=== PATIENT | female | born 1945 | race Caucasian/White ===

== ENCOUNTER → 2016-05-04 | Outpatient (CLI) | payer MEDICARE ==
[~2016-05-04] MED LIST: CELEXA40 MG PO; CEPHALEXIN500 M1 PO; GEMFIBROZIL600 MG PO; HUMALOG KW200 UNIT/1; HUMALOG100 U/ML SC; LANTUS PEN100 U/ML SC; LANTUS100 U/ML SC; LISINOPRIL/HCTZ1 TA1 PO; LISINOPRIL10 MG PO; LOPRESSOR50 MG PO; MELOXICAM7.5 MG PO; METFORMIN1000 MG PO; METOPROLOL SUCC25 M1; NORCO 325 MG-51 TA1 PO; VICTOZA6 MG/ML SQ; ZOCOR40 MG PO
== END ==
LOC: LAB 09:11
DX: E11.9 Type 2 diabetes mellitus without complications (principal)

== ENCOUNTER → 2016-11-26 | Outpatient (CLI) | payer MEDICARE ==
[2015-01-28 11:42] VITALS: BP 171/76
== END ==
LOC: MAMMO 11-19 09:57
DX: R92.8 Other abnormal and inconclusive findings on diagnostic imaging of breast (principal)

== ENCOUNTER 2018-02-23 19:44 | Emergency (ER) | payer MEDICARE ==
[2018-02-23 20:45] LABS: BASO # 0.1 (0.02-0.10); EOS # 0.1 (0.04-0.40); EOS % 0.6 % (1.0-5.0); HEMOGLOBIN 14.5 g/dL (12.5-16.0); LYMPH# 3.5 (1.50-4.00); MEAN CELL VOLUME 91 fl (78-100); MEAN CORPUSCULAR HEMOGLOBIN 31 pg (27-31); MEAN CORPUSCULAR HGB CONC 34 g/dL (33-37); MONO # 0.6 (0.20-0.80); PLATELET COUNT 235 K/mm3 (130-400); RED BLOOD COUNT 4.75 M/mm3 (4.10-5.30); RED CELL DISTRIBUTION WIDTH 11.9 % (11.5-14.5); WHITE BLOOD COUNT 9.1 K/mm3 (4.8-10.8)
[2018-02-23 20:48] LABS: ALBUMIN 4.5 g/dL (3.5-5.0); CALCIUM 9.7 mg/dL (8.4-10.2); POTASSIUM 4.7 mmol/L (3.6-5.0); TOTAL BILIRUBIN 0.6 mg/dL (0.2-1.3); TOTAL PROTEIN 7.2 g/dL (6.3-8.2)
[2018-02-23 20:52] LABS: MEAN PLATELET VOLUME 12.4 fl (7.4-10.4)
[2018-02-23 21:02] LABS: URINE APPEARANCE CLOUDY; URINE COLOR YELLOW
[2018-02-23 21:03] LABS: URINE BILIRUBIN NEGATIVE (NEGATIVE); URINE BLOOD 50 ery/uL (NEGATIVE); URINE KETONE 1+ (NEGATIVE); URINE LEUKOCYTE ESTERASE 2+ (NEGATIVE); URINE NITRATE NEGATIVE (NEGATIVE); URINE PROTEIN(semi-quant) TRACE mg/dL (NEGATIVE); URINE UROBILINOGEN NORMAL (NORMAL); URINE WBC 16-30 /hpf (0-3)
[2018-02-23 21:04] LABS: URINE MUCUS PRESENT (NOT PRESENT)
[2018-02-24] MEDS ORDERED: LISINOPRIL40 MG PO (01:26)
[2018-02-24] MEDS ORDERED: SIMVASTATIN10 M1 PO (01:27)
[2018-02-24] MEDS ORDERED: NOVOLOG FLEX100 U/ML SQ (01:27)
[2018-02-24] MEDS ORDERED: ASPIRIN E.C. 8181 MG PO (01:28)
[2018-02-24] MEDS ORDERED: FLUCONAZOLE150 MG PO (01:29)
[2018-02-24 07:23] LABS: CALCIUM 8.8 mg/dL (8.4-10.2); POTASSIUM 4.2 mmol/L (3.6-5.0)
[2018-02-24 11:02] VITALS: BP 176/86
== END 2018-02-24 11:06 | disposition other institution (70) ==
LOC: ED 19:44
PROVIDERS: Family Medicine
DX: E11.65 Type 2 diabetes mellitus with hyperglycemia (principal); Z79.4 Long term (current) use of insulin; T38.3X6A Underdosing of insulin and oral hypoglycemic [antidiabetic] drugs, initial encounter; Z91.120 Patient's intentional underdosing of medication regimen due to financial hardship; N39.0 Urinary tract infection, site not specified; Z79.899 Other long term (current) drug therapy; Z79.82 Long term (current) use of aspirin; I10 Essential (primary) hypertension; Z87.820 Personal history of traumatic brain injury; G43.909 Migraine, unspecified, not intractable, without status migrainosus; Z87.440 Personal history of urinary (tract) infections
CPT/HCPCS: A4216; J0696; J1815; J7030

== ENCOUNTER 2018-02-24 10:46 | Inpatient (IN) | payer MEDICARE ==
[~2018-02-24] VITALS: Ht 167.6 cm; Wt 96.2 kg
[~2018-02-24 10:46] MED LIST changes: +ASPIRIN E.C. 8181 MG PO; +FLUCONAZOLE150 MG PO; +LISINOPRIL40 MG PO; +NOVOLOG FLEX100 U/ML SQ; +SIMVASTATIN10 M1 PO
[2018-02-24 11:02] VITALS: BP 176/86
--- NOTE | 2018-02-24 11:20 | NUR ---
ASSIST TO ROOM 306 VIA W/C. INT X2 INTACT TO LT HAND AND RT AC. PATIENT ALERT AND ORIENTED. COOPERATIVE. ORIENT TO USE OF CALL LIGHT AND BED CONTROLS. SHE REPORTS LOW BACK PAIN; WILL NOTIFY CAROL HANSON FOR PAIN MEDICATION.
[2018-02-24 11:34] VITALS: BP 176/86
[2018-02-24 12:04] LABS: BASO # 0.1 (0.02-0.10); EOS # 0.2 (0.04-0.40); EOS % 1.8 % (1.0-5.0); HEMOGLOBIN 13.8 g/dL (12.5-16.0); LYMPH# 3.7 (1.50-4.00); MEAN CELL VOLUME 92 fl (78-100); MEAN CORPUSCULAR HEMOGLOBIN 30 pg (27-31); MEAN CORPUSCULAR HGB CONC 33 g/dL (33-37); MEAN PLATELET VOLUME 12.8 fl (7.4-10.4); MONO # 0.6 (0.20-0.80); PLATELET COUNT 198 K/mm3 (130-400); RED BLOOD COUNT 4.57 M/mm3 (4.10-5.30); RED CELL DISTRIBUTION WIDTH 12.1 % (11.5-14.5); WHITE BLOOD COUNT 9.6 K/mm3 (4.8-10.8)
--- NOTE | 2018-02-24 14:58 | NUR ---
[facility] DIRECTOR FIELD SERVICES VISITS WITH PATIENT. PATIENT VERBALIZES THAT SHE KNOWS ALL THE EDUCATION AND WHAT SHE NEEDS TO DO, SHE JUST "SLACKED OFF." PATIENT BELIEVES THAT SHE CAN "GET BACK INTO [facility]" INDEPENDENTLY.
[2018-02-24 15:31] VITALS: BP 177/83
[2018-02-24 16:05] VITALS: BP 176/86
--- NOTE | 2018-02-24 19:28 | NUR ---
REPORT RECEIVED FROM ROSE Bruce RN.
[2018-02-24 19:33] VITALS: BP 192/77
--- NOTE | 2018-02-24 21:15 | NUR ---
THIS RN IN WITH PATIENT TO ADMINISTER HS MEDICATIONS AND PERFORM SHIFT ASSESSMENT. PATIENT IS SLEEPING SOUNDLY AND DOES NOT APPEAR TO BE IN ANY OBVIOUS DISTRESS AT THIS TIME. PATIENT IS EASILY AROUSABLE, AND DROWSY BUT ORIENTED. PATIENT DENIES HAVING ANY PAIN. PATIENT TAKES HER MEDICATION WITH NO OBVIOUS DIFFICULTY AND ACCEPTS INSULIN EDUCATION. PATIENT ASKS APPROPRIATE QUESTIONS AND JOKES WITH NURSE. PATIENT STATES SHE WILL CALL IF SHE NEEDS ANYTHING, BUT OTHERWISE WISHES TO REST. PATIENT PROVIDED EDUCATION ON CARES, MEDS AND ASSESSMENTS THAT WILL TAKE PLACE DURING THE NIGHT AND SHE INDICATES UNDERSTANDING. PATIENT CONTROLS HOB ELEVATION INDEPENDENTLY. SHE ALSO CHANGES HER POSITION IN BED INDEPENDENTLY. BED RAILS UP X2. BED ALARM ARMED. CALL LIGHT WITHIN REACH. SALTINE CRACKERS PROVIDED PER PATIENT'S REQUEST. CLOSE MONITORING AND HOURLY ROUNDING CONTINUE.
[2018-02-24 22:51] VITALS: BP 186/101
[2018-02-25 03:21] VITALS: BP 187/73
--- NOTE | 2018-02-25 04:35 | NUR ---
PATIENT CONTINUES TO REST QUIETLY IN BED. PATIENT DOES NOT APPEAR TO BE IN ANY OBVIOUS DISTRESS, AND CONTINUES TO DENY PAIN. PATIENT HAS HAD NO COMPLAINTS OR REQUESTS THROUGHOUT THE NIGHT. PATIENT AMBULATED TO THE BATHROOM WITHOUT DIFFICULTY ONCE THROUGHOUT THE NIGHT. PATIENT CHANGES HER POSITION INDEPENDENTLY THROUGHOUT THE NIGHT. SHE ALSO CHANGES HER HOB ELEVATION INDEPENDENTLY. BED RAILS UP X2. BED ALARM ARMED. CALL LIGHT WITHIN REACH. FLUIDS CONTINUE TO INFUSE. CLOSE MONITORING AND HOURLY ROUNDING CONTINUE.
[2018-02-25 06:39] VITALS: BP 185/81
--- NOTE | 2018-02-25 07:06 | NUR ---
REPORT GIVEN TO BOBBY Barry RN.
[2018-02-25 07:57] LABS: EOS # 0.1 (0.04-0.40); EOS % 2.3 % (1.0-5.0); HEMATOCRIT 39.5 % (37.0-47.0); HEMOGLOBIN 12.8 g/dL (12.5-16.0); LYMPH# 2.4 (1.50-4.00); MEAN CELL VOLUME 93 fl (78-100); MEAN CORPUSCULAR HEMOGLOBIN 30 pg (27-31); MEAN CORPUSCULAR HGB CONC 32 g/dL (33-37); MEAN PLATELET VOLUME 11.6 fl (7.4-10.4); MONO # 0.3 (0.20-0.80); NEU # 3.1 (1.40-6.50); PLATELET COUNT 179 K/mm3 (130-400); RED BLOOD COUNT 4.25 M/mm3 (4.10-5.30); RED CELL DISTRIBUTION WIDTH 12.1 % (11.5-14.5)
--- NOTE | 2018-02-25 08:00 | NUR ---
Pt sitting up in chair. Alert oriented and plesant. Reports 2/10 pain to flank.
[2018-02-25 08:01] LABS: CALCIUM 8.3 mg/dL (8.4-10.2); POTASSIUM 4.5 mmol/L (3.6-5.0)
[2018-02-25 10:51] VITALS: BP 163/82
[2018-02-25 15:13] VITALS: BP 161/72
[2018-02-25 18:47] VITALS: BP 203/75
--- NOTE | 2018-02-25 19:00 | NUR ---
REPORT RECEIVED FROM BOBBY Barry RN.
--- NOTE | 2018-02-25 22:02 | NUR ---
SCHOOL COORDINATOR STAFF AND YAKOV RN REPORT THAT PATIENT CONTINUES TO BE HYPERTENSIVE. NEW ANTIHYPERTENSIVES STARTED TODAY, BUT PATIENT IS ANXIOUS ABOUT HER BLOOD PRESSURE AND WANTS TO KNOW WHAT CAN BE DONE ABOUT IT. MARICRUZ FITZGERALD APRN IS CONTACTED, WHO GIVES PHONE ORDERS TO ADMINISTER 0.1 MG CLONIDINE X1, AND RECHECK BP IN AN HOUR. IF STILL ELEVATED, TO REPEAT WITH ANOTHER 0.1 MG DOSE. PATIENT INDICATES UNDERSTANDING AND ASKS APPROPRIATE QUESTIONS.
[2018-02-25 23:05] VITALS: BP 198/71
--- NOTE | 2018-02-26 01:20 | NUR ---
ACCOUNTS COLLECTOR STAFF REPORTS A BP OF 130/70 AND PATIENT IS MUCH RELIEVED.
[2018-02-26 03:00] VITALS: BP 120/77
[2018-02-26 06:00] VITALS: BP 136/65
[2018-02-26 06:08] LABS: EOS # 0.2 (0.04-0.40); EOS % 3.5 % (1.0-5.0); HEMATOCRIT 34.8 % (37.0-47.0); HEMOGLOBIN 11.6 g/dL (12.5-16.0); LYMPH# 2.8 (1.50-4.00); MEAN CELL VOLUME 93 fl (78-100); MEAN CORPUSCULAR HEMOGLOBIN 31 pg (27-31); MEAN CORPUSCULAR HGB CONC 33 g/dL (33-37); MEAN PLATELET VOLUME 11.5 fl (7.4-10.4); MONO # 0.3 (0.20-0.80); NEU # 2.4 (1.40-6.50); PLATELET COUNT 174 K/mm3 (130-400); RED BLOOD COUNT 3.74 M/mm3 (4.10-5.30); RED CELL DISTRIBUTION WIDTH 11.9 % (11.5-14.5); WHITE BLOOD COUNT 5.8 K/mm3 (4.8-10.8)
[2018-02-26 06:44] LABS: CALCIUM 8.6 mg/dL (8.4-10.2)
--- NOTE | 2018-02-26 07:05 | NUR ---
REPORT GIVEN TO ROSE Bruce RN.
--- NOTE | 2018-02-26 10:51 | NUR ---
JUAN PA AT BEDSIDE WITH PATIENT.
[2018-02-26 11:29] VITALS: BP 163/72
[2018-02-26 15:08] VITALS: BP 168/82
--- NOTE | 2018-02-26 17:15 | NUR ---
Pt c/o feet always being cold. Ask pt if she has ever been told she has neuropathy. Pt reports that she has. Education provided about the connection between neuropathy and diabetes.
[2018-02-26 18:34] VITALS: BP 167/76
--- NOTE | 2018-02-26 18:51 | NUR ---
Check fsbs 1 hour postpradial. fsbs 169 at this time.
--- NOTE | 2018-02-26 20:33 | NUR ---
Assessment complete. Patient resting in bed. Bed in lowest position. Call light and personal belongings within reach of patient. Able to voice wants/needs, none at this time. Will cont to monitor.
[2018-02-26 23:04] VITALS: BP 160/79
[2018-02-27 02:53] VITALS: BP 158/82
--- NOTE | 2018-02-27 03:47 | NUR ---
Patient sleeping in bed. No s/s of discomfort. Will cont to monitor.
[2018-02-27 06:06] LABS: CALCIUM 8.7 mg/dL (8.4-10.2)
[2018-02-27 06:09] VITALS: BP 157/73
--- NOTE | 2018-02-27 07:18 | NUR ---
Report given to SO Quinonez.
--- NOTE | 2018-02-27 07:20 | NUR ---
BEDSIDE REPORT RECEIVED FROM SO COVINGTON
--- NOTE | 2018-02-27 07:40 | NUR ---
patient's shift assessment complete. patient lying in bed. denies any pain or discomforts at this time. denies shortness of breath or difficulties breathing. has normal saline infusing at 75 mls/hr. reports sleeping well last night. reports feeling overall better. reports feeling okay with going home today if the doctors feel as though pt is able to go. patient's call light within reach. bed alarm on.
--- NOTE | 2018-02-27 09:40 | NUR ---
carlos tovar aprn in [facility] patient.
--- NOTE | 2018-02-27 10:45 | NUR ---
this nurse in room multiple times the past 1 hour discussing medications and plan. patient concerned and wanting to know why plan for accu checks/insulin that had been previously discussed today and yesterday is no longer what is being done. patient's daughter becomes agitated during conversations. states "we are ready to get her home. we just want to know what the plan is and what she will be on when she goes home" patient questioning why blood sugar is no longer being taken 1-2 hours after meals like it was yesterday and reporting that provider told them that is what was gong to be done yesterday. wanting to know what medications patient was going to be on upon discharge and about sliding scale insulin upon discharge. patient and daughter informed that this nurse spoke with evelyn river about accu checks and extra accu checks were no longer necessary due to patient's accu checks improving. notified that as of now patient was not going to be on a sliding scale insulin upon discharge. continue to seem agitated after voiced concerns were addressed by this nurse.
[2018-02-27 11:09] VITALS: BP 200/99
--- NOTE | 2018-02-27 11:10 | NUR ---
lila herring clinical plant health care technician in patient's room to discuss plan of care. this nurse and patient's daughter in room. discussed that plan is for discharge today and home health is recommended upon discharge. notified that home health requires patient to be home bound. 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 patient gets tearful. states "can we have time to think about it? i just need some time"
--- NOTE | 2018-02-27 11:15 | NUR ---
patient's blood pressure 200/98 at this time. bp reported to carlos tovar aprn at this time. recheck patient's blood pressure in a little bit after patient has had time to calm down.
[2018-02-27 12:50] VITALS: BP 198/70
--- NOTE | 2018-02-27 12:50 | NUR ---
PATIENT'S BLOOD PRESSURE RECHECK 198/70. REPORTED TO Saad FITZGERALD APRN. NO NEW ORDERS AT THIS TIME.
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
--- NOTE | 2018-02-27 13:15 | NUR ---
BLOOD PRESSURE RECHECK 170/89. Saad FITZGERALD APRN NOTIFIED. NO NEW ORDERS AT THIS TIME.
[2018-02-27 13:30] VITALS: BP 170/81
[2018-02-27 14:49] VITALS: BP 188/83
[2018-02-27] MEDS ORDERED: NYSTATIN15 G1 TP (15:09)
[2018-02-27] MEDS ORDERED: LEVEMIR FLEX100 U/ML SQ (15:09)
[2018-02-27] MEDS ORDERED: NOVOLOG FLEX100 U/ML SQ (15:09)
[2018-02-27] MEDS ORDERED: HYDROCHLOROTH12.5 M1 PO (15:09)
[2018-02-27] MEDS ORDERED: LISINOPRIL40 MG PO (15:43)
--- NOTE | 2018-02-27 16:10 | NUR ---
PATIENT PROVIDED DISCHARGE INSTRUCTIONS AT THIS TIME. WENT OVER DISCHARGE MEDICATIONS IN LENGTH. PROVIDED PRINT OUT OF MEDICATIONS AND TIMES MEDICATION WERE DUE. PROVIDED PATIENT WITH COUPONS FOR MEDICATIONS AND PAPERWORK ON RESOURCES AVAILABLE FOR INSULIN. PATIENT INFORMED OF FOLLOW UP APPTS AND INSTRUCTIONS FROM PROVIDER. INFORMED OF APPT WITH SCHEDULED FOR 03/06 AT 1045. PATIENT SENT HOME WITH COPY OF REFERRAL FOR DIABETIC EDUCATION WITH CONNIE. PATIENT TO FOLLOW UP AFTER NEW YEAR. LOGS FOR ACCU CHECKS AND VITAL SIGNS SENT WITH PATIENT. PATIENT VERBALIZED UNDERSTANDING OF INSTRUCTIONS. DENIES ANY QUESTIONS FOR THE NURSE AT THIS TIME. COPY OF PATIENT'S MEDICAL RECORD FROM [facility]PITAL[facility] FAXED TO PER AMBER'S REQUEST.
--- NOTE | 2018-02-27 16:17 | NUR ---
PATIENT LEFT FACILITY AMBULATORY TO POV AT THIS TIME. ACCOMPANIED BY THIS NURSE. PERSONAL BELONGINGS AND DISCHARGE PAPERWORK SENT WITH PATIENT.
[2018-02-28] MEDS ORDERED: CEFDINIR300 MG PO (01:21)
== END 2018-02-27 16:17 | disposition home or self-care (01) | DRG 638 ==
LOC: MED/SURG 10:46
PROVIDERS: Physician Assistant; ADMIT Nurse Practitioner Primary Care
DX: E11.00 Type 2 diabetes mellitus with hyperosmolarity without nonketotic hyperglycemic-hyperosmolar coma (NKHHC) (principal); N39.0 Urinary tract infection, site not specified; B37.49 Other urogenital candidiasis; Z79.4 Long term (current) use of insulin; I10 Essential (primary) hypertension; E86.0 Dehydration; Z91.14 Patient's other noncompliance with medication regimen; L30.4 Erythema intertrigo
CPT/HCPCS: A4216; C9113; J0696; J1650; J1815; J7030

== ENCOUNTER → 2019-01-07 | Outpatient (CLI) | payer MEDICARE ==
[~2019-01-07] MED LIST changes: +CEFDINIR300 MG PO; +HYDROCHLOROTH12.5 M1 PO; +LEVEMIR FLEX100 U/ML SQ; +NYSTATIN15 G1 TP
== END ==
LOC: MAMMO 13:36
DX: Z12.31 Encounter for screening mammogram for malignant neoplasm of breast (principal)

== ENCOUNTER → 2019-11-18 | Day surgery (SDC) | payer MEDICARE | LOC: MSO 07:56 | DX: H25.11 Age-related nuclear cataract, right eye (principal); E11.9 Type 2 diabetes mellitus without complications; Z79.4 Long term (current) use of insulin; Z79.899 Other long term (current) drug therapy; Z79.82 Long term (current) use of aspirin | CPT/HCPCS: J0171; J2370; V2632 ==

== ENCOUNTER → 2022-02-21 | Outpatient (CLI) | payer MEDICARE | LOC: VAS 12:26 → RAD 13:00 | DX: R60.0 Localized edema (principal) ==

== ENCOUNTER → 2022-12-20 | Outpatient (CLI) | payer MEDICARE | LOC: RAD 08:45 | DX: I12.9 Hypertensive chronic kidney disease with stage 1 through stage 4 chronic kidney disease, or unspecified chronic kidney disease (principal); N18.32 Chronic kidney disease, stage 3b ==

== ENCOUNTER 2023-07-15 08:00 | Outpatient (RCR) | payer MEDICARE, MEDICAID | END 2023-08-09 | disposition home or self-care (01) | LOC: PT | DX: M25.561 Pain in right knee (principal); Z96.651 Presence of right artificial knee joint ==